=== PATIENT | female | born 1945 | race Caucasian/White ===

== ENCOUNTER → 2016-06-22 | Outpatient (CLI) | payer MEDICARE, OTHER ==
--- NOTE | 2016-06-28 06:30 | RADIOLOGY REPORT PS360 ---
MRI-L-SPINE W/O, MRI-3D RENDERING/MYELOGRAM HISTORY: Tingling and numbness in left leg LOW BACK PAIN RADIATING TO ELFT LOWER EXTREMITY ORDERING PHYSICIAN: Yesenia BELL PATIENT AGE: 70 years COMPARISON: There are no previous exams available at this institution for comparison. Old images and reports have been requested but have not yet been made available at the time of this reading. TECHNIQUE: Standard multiplanar multiecho sequences are performed without contrast. 3-D MIP and myelographic images are also rendered and reviewed FINDINGS: Multiple abnormalities are present and will be outlined below at each level. There are multiple levels of postsurgical change with resultant artifact from the kyphoplasty's and interpedicular screws. This decreases sensitivity of the exam. Correlation with old films is paramount. The spinal cord ends at the T12-L1 level. T9-T10: Small central disc protrusion. Wedge compression changes are present involving T10 vertebral body with loss of height centrally 90% and minimal retropulsion of the posterior aspect of the 10 by approximately 4 mm with mild narrowing of the canal. These compression changes show increased T2 signal centrally and may be subacute. Recommend correlation with prior exams T10 T 11: Degenerative disc disease. T11-T12: Prior vertebral plasty at T11 with mild wedge compressive changes. Degenerative disc disease with mild bulging disc. Prior vertebral plasty at T12 with mild chronic wedge compressive changes. Facet and ligamentum flavum hypertrophy with mild bilateral lateral recess and foraminal narrowing. T12-L1: Degenerative disc disease. There is been prior vertebroplasty at T12 and L1 with old mild wedging of T12 and L1. Prominent ridging is present posteriorly at T12-L1 with bulging disc and osteophyte versus old area of retropulsion of the posterior inferior aspect of T12 with canal stenosis and severe bilateral foraminal narrowing and lateral recess narrowing. There is impingement upon the exiting T12 nerve roots bilaterally. L1-2: Prior vertebral plasty at L1 and L2 with degenerative disc disease. Interpedicular screws are present at L2. There is bulging disc at this level with severe bilateral foraminal narrowing with likely impingement upon the exiting L1 nerve roots. L2-L3: Postsurgical changes with interpedicular screws at L2 and L3 with considerable artifact and degenerative disc disease. L3-L4: 7 mm anterolisthesis of L3 on L4 with degenerative disc disease. Interpedicular screws are present at L3 and L4 with considerable artifact and moderate bilateral foraminal narrowing. L4-L5: Postsurgical changes with interpedicular screws with artifact. There is mild wedging of L4 anteriorly which appears old. Degenerative disc disease with bulging disc. L5-S1: Postsurgical changes with interpedicular screws with mild bulging disc very minimal central disc protrusion. IMPRESSION: 1. Abnormal MRI of the lumbar spine. Please see above for detailed description of each level. 2. Multilevel kyphoplasty with compression changes and multilevel interpedicular screws with fixation with artifact. 3. Severe no wedge compression changes are present at T10 and may be subacute. 4. Prominent posterior ridging noted at T12-L1 with broad-based disc osteophyte complex with canal stenosis and bilateral foraminal narrowing. 5. Multilevel severe foraminal and lateral recess narrowing 6. Old exams not available for comparison to determine interval progression or stability
== END ==
LOC: RAD 12:53
DX: M54.5 Low back pain (principal); M06.9 Rheumatoid arthritis, unspecified; M81.0 Age-related osteoporosis without current pathological fracture

== ENCOUNTER → 2016-11-23 | Outpatient (CLI) | payer MEDICARE, OTHER ==
--- NOTE | 2016-11-23 12:18 | RADIOLOGY REPORT PS360 ---
EXAM: LUMBAR SPINE 5 VIEWS HISTORY: LT HIP INSTABILITY, LBP RADIATING DOWN LT LEG ORDERING PHYSICIAN: Yesenia BELL PATIENT AGE: 70 years COMPARISON: None FINDINGS: Extensive postsurgical changes are present. There has been prior vertebroplasty at T11 and T12 and L1 and L2 with extensive wedge compression changes at T11, T12 and L1. There has been prior vertebroplasty at L3 as well. There are 6 lumbar segments. Compressive changes are present at L4 superiorly. Postsurgical changes of lumbar spine with multilevel laminectomy from L3 to S1. Interpedicular screws are present at L3, L4, L5, L6, S1, and S2 with the S2 screws extending into the ilium on both sides. There is mild upper lumbar curvature convex left disc spacers are present at L3-L4, L4-5, and L5 L6 and L6 S1 interpedicular screws at L4 are along the superior endplate. There is mild lumbar scoliosis convex left. There is some minimal extrusion of methylmethacrylate into the paravertebral vessel on the left at L2. IMPRESSION: 1. Extensive postsurgical changes from prior laminectomy from L3 to S1 with interpedicular screws present. 2. Wedge compression changes are present involving multiple vertebral bodies including L4, L2, L1, T12, and T11. 3. Multiple level kyphoplasty
--- NOTE | 2016-11-23 12:21 | RADIOLOGY REPORT PS360 ---
HIP LT 2-3V W/PELVIS IF PERFOR HISTORY: LT HIP INSTABILITY, LBP RADIATING DOWN LT LEG ORDERING PHYSICIAN: Yesenia BELL PATIENT AGE: 70 years COMPARISON: None FINDINGS: There are extensive postsurgical changes of the lumbar spine as described in the lumbar spine report. Interpedicular screws extend from S2 segment into the ileum on both sides. There is cortical regularity of the left inferior and superior pubic ramus with mild widening of the symphysis pubis. This could be related to old trauma. Please correlate clinically. Acute fracture and symphysis separation is a consideration as well if there has been recent trauma. CT scan of the pelvis may be of further value clinically warranted. The left hip itself has an unremarkable appearance other than some minimal osteoarthritic change. IMPRESSION: 1. Minimal osteoarthritic change left hip. 2. Probable old fracture of the left inferior and superior pubic ramus. Please correlate clinically. CT scan may confirm.
== END ==
LOC: RAD 11:08
DX: M25.352 Other instability, left hip (principal); M54.5 Low back pain

== ENCOUNTER → 2016-11-29 | Outpatient (CLI) | payer MEDICARE, OTHER ==
--- NOTE | 2016-11-30 22:02 | RADIOLOGY REPORT PS360 ---
CT EXT.LOWER-LT-W/O CONTRAST 3-D volume reconstruction images with shading performed on radiologist workstation.... 77 CPT HISTORY: INSTABILITY OF LEFT HIP,ABNORMAL ABDOMINAL X-RAY Patient Age: 70 years: Female Ordering Physician: Yesenia BELL TECHNIQUE: Helical CT scanning performed through the through the pelvis with bone window technique. From these appearing images of the sagittal and coronal reconstruction views performed initially and subsequent additional oblique, as well as volume rendering 3-D images performed by Dr. Vazquez on the radiologist workstation.-77 CPT COMPARISON :Plain films left hip as well as lumbar spine 11/23/2016 MRI lumbar spine 06/22/2016 Patient also reports prior studies at [facility] FINDINGS The CT pelvis study begins at L3. Old lumbar fusion with extensive laminectomy throughout this lower L-spine partially imaged.. Prominent laminectomy at L3 & L4 level noted today's with left laminectomy at L5. Near Grade 2 anterolisthesis 6 mm, of L3 on-L4 noted as seen on previous Jun, 2016 MR. Also note old wedge compression fracture L4 which fairly appears stable vs prior MR. The pedicle screws are seen at each of the fixation levels including 2 screws in S1 as 2 oblique very very long screws passing through the body and sacral ala then transversing lower SI joints & continuing into the inferior iliac bone bilaterally.... Old appearing Bilateral sacral insufficiency fractures are evident. Prominent Diffuse mineralization again noted. With this Vertical fracture lines in both right & left sacral ala evident; with inhomogeneous inhomogeneous Sclerosis throughout surrounding these residual fracture line in both right and left sacrum a left... Older appearing bony healing changes yields rim of dense bone overlying right inferior sacrum. ----- Recent/acute Fracture Left Pubis.: -Vertical somewhat comminuted fracture left pubis at its junction with the superior & inferior ramus. Additional reconstruction views were performed & better demonstrate.... The superior & inferior ramus is displaced ~12 mm posterior compared the pubic fracture fragment. The pubis fragment remains attached I believe to the pubic symphysis.. Prominent lucency is seen particularly at the superior aspect of this fracture. On the reconstructions images on workstation suspect this may reflect a split fracture or avulsion of the superior margin of this pubic fracture fragment. Difficult to totally exclude underlying lesion . surprisingly generous soft tissue density about this fracture zone. Although this may reflect generous hematoma about the fracture, given the osteopenia and lucent/ irregularity appearance superior aspect of the pubic bone fracture fragment, it is difficult to totally exclude a underlying destructive lesion here. I tend to findings related comminuted fracture, but Follow-up studies would be important in this regard. & This possibility should be kept in mind. ( If there are previous CT or cross-sectional imaging studies of pelvis performed elsewhere, these would be helpful for comparison...;. No history of cancer is given but if there is a may want to consider to consider total body bone scan Diffuse demineralization. The hips appear intact bilaterally. . ---- IMPRESSION 1. Comminuted vertical fracture through the left pubis.. ... The main fracture line passes vertically through junction of pubis-w/ superior & inferior ramus. . ~ 12 mm offset at this fracture .... Prominent soft tissue density surrounds fracture. Favor generous hematoma; ... Lucent appearance at superior aspect of this pubic fracture fragment..-. May Merely reflect fracture fragment arising from superior margin.; . But with this lucent appearance & soft tissue density difficult to totally exclude underlying lesion.-Although I believe this less likely,warrants follow-up. Suggest follow-up CT in several weeks. ( If there are previous CT or cross-sectional imaging studies of pelvis performed elsewhere, these with be helpful for comparison) . 2. Extensive posterior fusion lumbar spine. This includes very long oblique screws at the entering posteriorly at the S2 level which transverse sacrum, SI joints and continue into the inferior iliac bone 3.. Most likely old bilateral sacral insufficiency fractures.... If however if pain here Cannot exclude recent reactive changes .
== END ==
LOC: RAD 10:15
DX: M25.352 Other instability, left hip (principal); R93.8 Abnormal findings on diagnostic imaging of other specified body structures